=== PATIENT | female | born 1990 | race African-American/Black ===

== ENCOUNTER 2017-08-01 23:51 | Emergency (ER) | payer MEDICAID ==
[~2017-08-01] VITALS: Ht 172.7 cm; Wt 71.0 kg
[~2017-08-01 23:51] MED LIST: MACR100C PO; PREN0.01 PO; PRENCAP6 PO; PROM25TA5 PO; ZOFR4TAB3 SL
[2017-08-01 23:55] VITALS: BP 146/102; PULSE 88; RESP 20; TEMP 98.6; O2SAT 99
[2017-08-02] MEDS ORDERED: SODIUM CHLOR 0.9% 1000 ML INJ 1,000 ML IV ONE (00:47)
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
[2017-08-02 01:11] LABS: AUTOMATED NEUTROPHIL # 5.9 TH/MM3 (1.8-7.7); BASOPHIL # 0.1 TH/MM3 (0-0.2); BASOPHIL % 0.9 % (0.0-2.0); EOSINOPHIL # 0.3 TH/MM3 (0-0.4); HEMATOCRIT 32.2 % (35.0-46.0); HEMO FLAGS DIFF FINAL; LYMPH % 18.1 % (9.0-44.0); LYMPHOCYTE # 1.5 TH/MM3 (1.0-4.8); MEAN CORPUSCULAR HEMOGLOBIN 29.7 PG (27.0-34.0); MEAN CORPUSCULAR HGB CONC 33.8 % (32.0-36.0); PLATELET COUNT 299 TH/MM3 (150-450); RED BLOOD COUNT 3.66 MIL/MM3 (4.00-5.30); RED CELL DISTRIBUTION WIDTH 15.9 % (11.6-17.2); WHITE BLOOD COUNT 8.3 TH/MM3 (4.0-11.0)
[2017-08-02 01:14] VITALS: BP 115/78; PULSE 74; RESP 17; O2SAT 100
[2017-08-02 01:32] LABS: ALT (GPT) 9 U/L (10-53); ANION GAP 7 MEQ/L (5-15); AST (GOT) 7 U/L (15-37); BICARBONATE 24.6 MEQ/L (21.0-32.0); BLOOD UREA NITROGEN 8 MG/DL (7-18); CHLORIDE 106 MEQ/L (98-107); GLOMERULAR FILTRATION RATE 146 ML/MIN (>89); POTASSIUM 3.7 MEQ/L (3.5-5.1); SODIUM (NA) 138 MEQ/L (136-145)
[2017-08-02] MEDS ORDERED: MORPHINE SULFATE 4 MG/ML INJ IV PUSH ONE (01:45)
[2017-08-02] MEDS ORDERED: ONDANSETRON HCL 4 MG/2 ML VIAL IV PUSH ONE (01:45)
[2017-08-02 01:48] LABS: ALKALINE PHOSPHATASE 86 U/L (45-117); BETA HCG QUANT 20969 MIU/ML (0-5); TOTAL BILIRUBIN ADULT 0.2 MG/DL (0.2-1.0)
[2017-08-02 02:19] LABS: BLOOD, URINE MOD (NEG); COMMENT (UR) CULT NOT INDICATED; CULTURE IF INDICATED CULT NOT INDICATED; GLUCOSE,URINE NEG (NEG); KETONE, URINE TRACE mg/dL (NEG); MUCUS URINE FEW /lpf (OCC); NITRITE,URINE NEG (NEG); PH, URINE 6.5 (5.0-8.5)
[2017-08-02 02:20] LABS: URINE COLOR LIGHT-RED (YELLW/STRAW)
--- NOTE | 2017-08-02 03:27 | RADRPT ---
EXAM DATE/TIME: 08/02/2017 02:31 [facility] COMPARISON: No previous studies available for comparison. INDICATIONS : Vaginal bleeding with . LAB(S): Beta-hC MEDICAL HISTORY : Anemia. Ovarian cysts. Depression. Anxiety. Substance use. SURGICAL HISTORY : section. ENCOUNTER: Subsequent ACUITY: 1 day PAIN SCORE: 4/10 LOCATION: Bilateral pelvis MEASUREMENTS: UTERUS: 11.2 x 6.9 x 5.1 cm ENDOMETRIAL STRIPE: 15 mm RIGHT OVARY: 4.5 x 3.1 x 2.1 cm LEFT OVARY: not seen FREE FLUID: Yes CROWN RUMP LENGTH: not seen = WKS DAYS FHR: not seen BPM FINDINGS: UTERUS: No normal intrauterine gestation is identified. There is a small oblong hypoechoic focus in the endom etrial cavity of the lower uterine segment measuring about 8 mm in dimension. This could be debris, p roximal of conception or a small polyp. RIGHT OVARY: Ovary contains no mass or significant cystic lesion. LEFT OVARY: Ovary contains no mass or significant cystic lesion. MISCELLANEOUS: Minimal free fluid CONCLUSION: No normal intrauterine gestation. Differential considerations would include early IUP, miscarriage or ectopic Jerome Rossi MD on August 02, 2017 at 3:23 Board Certified Radiologist. This report was verified electronically.
[2017-08-02] MEDS ORDERED: HYDR-3533 PO (03:56)
[2017-08-02 04:24] LABS: CHLAMYDIA PCR NOT DETECTED (NOT DETECT); NEISSERIA PCR NOT DETECTED (NOT DETECT)
== END 2017-08-02 04:33 | disposition home or self-care (01) ==
LOC: NEPE 23:51
DX: O20.0 Threatened abortion (principal); K59.00 Constipation, unspecified; R35.0 Frequency of micturition; R39.15 Urgency of urination; Z86.2 Personal history of diseases of the blood and blood-forming organs and certain disorders involving the immune mechanism; Z86.59 Personal history of other mental and behavioral disorders; Z87.42 Personal history of other diseases of the female genital tract; Z3A.00 Weeks of gestation of pregnancy not specified
CPT/HCPCS: 76700; 76817; 80053; 81001; 84702; 84703; 85025; 86901; 87210; 87491; 87591; 96361; 96374; 96375; 99284; J2270; J2405; J7030